=== PATIENT | male | born 2000 | race Caucasian/White ===

== ENCOUNTER → 2019-10-29 | Day surgery (SDC) | payer BC ==
[2019-10-24 15:59] LABS: BASOPHILS % (AUTO) 0.6 % (0-1); EOSINOPHILS # (AUTO) 0.2 X10'3 (0-0.9); HEMATOCRIT 44.2 % (42.0-52.0); HEMOGLOBIN 15.3 g/dl (14.0-17.9); LYMPHOCYTES # (AUTO) 1.4 X10'3 (1.1-4.8); LYMPHOCYTES % (AUTO) 41.6 % (21-51); MEAN CORPUSCULAR HEMOGLOBIN 34.7 PG (27.0-31.0); MEAN CORPUSCULAR HGB CONC 34.6 g/dL (33.0-36.5); MEAN CORPUSCULAR VOLUME 100.3 FL (78-98); MEAN PLATELET VOLUME 9.6 FL (7.4-10.4); MONOCYTES # (AUTO) 0.4 X10'3 (0-0.9); MONOCYTES % (AUTO) 10.4 % (2-12); NEUTROPHILS # (AUTO) 1.4 X10'3 (1.8-7.7); NEUTROPHILS % (AUTO) 40.4 % (42-75); PLATELET COUNT 153 X10'3 (140-440); RED CELL DISTRIBUTION WIDTH 12.2 % (11.5-14.5); WHITE BLOOD COUNT 3.4 X10'3 (4.5-11.0)
[2019-10-24 16:10] LABS: PARTIAL THROMBOPLASTIN TIME 28 SECONDS (22-32)
[2019-10-24 16:12] LABS: ALANINE AMINOTRANSFERASE 18 U/L (12-78); ALBUMIN 4.1 G/DL (3.4-5.0); ALBUMIN/GLOBULIN RATIO 1.1 (1.1-1.5); ALKALINE PHOSPHATASE 71 IU/L (20-180); ANION GAP 5 (8-16); ASPARTATE AMINO TRANSFERASE 18 U/L (10-37); BILIRUBIN,TOTAL 0.5 MG/DL (0.1-1.0); BLOOD UREA NITROGEN 19 MG/DL (7-18); BUN/CREATININE RATIO 20.2 (5.4-32.0); CHLORIDE 104 MMOL/L (99-107); CREATININE 0.94 MG/DL (0.60-1.10); GLUCOSE 93 MG/DL (70-104); SODIUM 140 MMOL/L (135-145); TOTAL PROTEIN 7.7 G/DL (6.4-8.2); eGFR > 90 ML/MIN
[~2019-10-29] VITALS: Ht 190.5 cm; Wt 81.6 kg
[~2019-10-29] MED LIST: BUPIVAcaine 0.5% W/EPI /PF 30ml vial ONE; FLUT16SP2 BOTHNARES; LIDOcaine 1% W/epiNEPHrine 1:100,000 20ml vial ONE; LIDOcaine 1% w/epiNEPHrine 1:200,000 30ml vial ONE; cefTAZidime 1gm inj ONE; cocaine 4% topical solution 4ml bottle ONE; famotidine 20mg tablet PO ONE; mupirocin 2% ointment 22GM ONE; oxymetazoline 15 ML nasal spray NS ONE; oxymetazoline 15 ML nasal spray NS PRN; ringers solution, lacted 1,000 ML IV SCH; triamcinolone acetonide 40mg/ml inj ONE
== END | disposition home or self-care (01) ==
LOC: PAS 06:35
PROVIDERS: ATTEND Otolaryngology
DX: J34.89 Other specified disorders of nose and nasal sinuses (principal); Z53.8 Procedure and treatment not carried out for other reasons; J34.2 Deviated nasal septum; F41.9 Anxiety disorder, unspecified; D64.9 Anemia, unspecified; Z79.899 Other long term (current) drug therapy; Z79.01 Long term (current) use of anticoagulants; Z11.59 Encounter for screening for other viral diseases
CPT/HCPCS: 36415; 80053; 85025; 85576; 85610; 85730; 87635; J0713; J3301; J7120